=== PATIENT | male | born 1975 | race Caucasian/White ===

== ENCOUNTER 2016-12-19 00:08 | Emergency (ER) | payer MEDICARE, MEDICAID ==
[~2016-12-19 00:08] MED LIST: ANTIVERT-DPS25 MG PO; BUPROPION XL300 MG PO; CELEBREX200 MG PO; CLEOCIN HCL150 MG PO; CYMBALTA30 MG PO; GLUCOPHAGE-DPS500 MG PO; HYDROCODONE 10M10 MG PO; IONAMIN DPS15 MG PO; LANTUS SOL100 UNIT/1 SQ; LIDODERM PATC1 PATCH TP; MS CONTIN DPS30 MG PO; NOVOLOG100 UNIT/2 SQ; OXY IR DPS5 MG PO; ROBAXIN-DPS750 MG PO; TROKENDI XR25 MG PO; ULTRAM DPS50 MG PO; ZANAFLEX4 MG PO
--- NOTE | 2016-12-19 06:54 | ER ---
ADMIT: 12/19/2016 RM/LOC: ER [facility] MR#: [id number] [id number] [place], [place] [id number] [address] [place] [address] Emergency Room Report SEX: M AGE: 41 : 1975 DATE: 12/19/2016 The patient is a 41-year-old morbidly obese male, complaining of left hypogastric abdominal pain associated with belching on certain foods. This has been ongoing for several months, worse today. Exam is remarkable for nontoxic, afebrile, morbidly obese male with multiple tattoos. Slightly tender in the left hypogastric region. Bowel sounds hypoactive. CT abdomen shows thickened gastric rugae similar to previous appearance. Normal CBC and CMP except for glucose 304, CRP 0.94, lactic 1.1. UA negative. D-dimer negative. EKG sinus rhythm without ST-T or Q-wave change. The patient was given GI cocktail with no improvement, then, Zofran, Toradol, Protonix, Dilaudid with near relief. Home with Protonix 40 mg daily. Strongly encouraged EGD to rule out gastric pathology. David Mcmillan MD/ lelia JOB #: [id number] CC: David Mcmillan MD, Attending Physician Zaria Le MD, Family Physician Zaria Le MD
== END 2016-12-19 02:53 | disposition home or self-care (01) ==
LOC: ER 00:08
DX: K29.70 Gastritis, unspecified, without bleeding (principal); E11.9 Type 2 diabetes mellitus without complications; E78.5 Hyperlipidemia, unspecified; E66.01 Morbid (severe) obesity due to excess calories; F17.210 Nicotine dependence, cigarettes, uncomplicated; Z79.4 Long term (current) use of insulin; Z79.84 Long term (current) use of oral hypoglycemic drugs; Z79.899 Other long term (current) drug therapy